=== PATIENT | female | born 1990 | race Hispanic/Latino ===

== ENCOUNTER 2018-12-10 07:17 | Day surgery (SDC) | payer MEDICAID ==
[2018-12-10] MEDS ORDERED: VERSED IV PRN (07:42)
[2018-12-10] MEDS ORDERED: SUBLIMAZE IV PRN (07:55)
--- NOTE | 2018-12-10 07:55 | Anesthesia Consultation ---
Anesthesia Consult and Med Hx Date of service: 12/10/18 - Airway Anesthetic Teeth Evaluation: Good ROM Head & Neck: Adequate Mental/Hyoid Distance: Adequate Mallampati Class: Class I Intubation Access Assessment: Good - Pulmonary Exam CTA: Yes - Cardiac Exam Cardiac Exam: RRR - Pre-Operative Health Status ASA Pre-Surgery Classification: ASA2 Proposed Anesthetic Plan: General - Pulmonary Hx Smoking: Yes (quit 10/2018) Hx Asthma: No Hx Respiratory Symptoms: No COPD: No - Cardiovascular System Hx Hypertension: No Hx Heart Attack/AMI: No Hx Percutaneous Transluminal Coronary Angioplasty (PTCA): No Hx Cardia Arrhythmia: No - Central Nervous System Hx Seizures: No CVA: No - Gastrointestinal Hx Gastroesophageal Reflux Disease: No - Endocrine Hx Renal Disease: No Hx Liver Disease: No Hx Insulin Dependent Diabetes: No Hx Non-Insulin Dependent Diabetes: No Hx Thyroid Disease: No - Other Systems Hx Obesity: No - Additional Comments Anesthesia Medical History Comments: No hx anesthetic complications. Believes she was 12-14wks but was told that the fetus stopped grawing at 10wks. Reports bleeding similar to a menstral cycle in last 2 days.
--- NOTE | 2018-12-10 07:55 | Anesthesia Day of Surgery ---
Anesthesia Day of Surgery - Day of Surgery Patient Examined: Yes Patient H&P Reviewed: Yes Patient is NPO: Yes
[2018-12-10] MEDS ORDERED: LACTATED RINGERS 1,000 ML IV SCH (08:00)
--- NOTE | 2018-12-10 08:09 | Short Stay Summary ---
Short Stay Documentation Date of service: 12/10/18 Narrative H&P: Patient is a 28 year old L1 who presents for D&E secondary to missed ab at 16 weeks with gestational sac measuring 10 weeks. - History H&P: obtained from office Past Medical History: No medical history Past Surgical History: No surgical history - Allergies and Medications Current Medications: Allergies No Known Allergies Allergy (Unverified 12/09/18 15:49) Home Medications Medication Instructions Recorded Confirmed Last Taken Type No Known Home Medications [No 12/09/18 12/09/18 Unknown History Reported Home Medications] Active Medications Fentanyl (Sublimaze) 50 mcg IV Q5MIN PRN PRN Reason: Pain , Severe (7-10) Lactated Ringer's (Lactated Ringers) 1,000 mls @ 75 mls/hr IV DIRECT DEDRA Midazolam HCl (Versed) 2 mg IV PREOP PRN PRN Reason: Anesthesia Stop: 12/10/18 23:59 - Physical exam General appearance: no acute distress Integumentary: no rash, no growths, no abnormal pigmentation HEENT: Atraumatic Lungs: Clear to auscultation Breasts: deferred Heart: Regular rate, Normal S1, Normal S2 Gastrointestinal: normal, normoactive bowel sounds Female Genitourinary: deferred Rectal Exam: deferred Extremities: No edema - Brief post op/procedure progress note Date of procedure: 12/10/18 Pre-op diagnosis: Missed Post-op diagnosis: same Procedure: D&E Anesthesia: GETA Findings: Uterus at 10 week size. Surgeon: CHASIDY URRUTIA Estimated blood loss: other (300cc) Pathology: list (products of conception) Specimen disposition: to lab Condition: stable - Hospital course Hospital course: unremarkable - Disposition Condition at discharge: Good Disposition: [id number] TO HOME OR SELFCARE Short Stay Discharge Plan Activity: advance as tolerated, other (nothing in the vagina) Weight Bearing Status: Weight Bear as Tolerated Diet: regular Follow up with: CHASIDY URRUTIA MD [Staff Physician] - 14 Days Prescriptions: Ibuprofen [Motrin] 800 mg PO Q8HR PRN #30 tablet PRN Reason: Pain, Mild (1-3) HYDROcodone/ACETAMINOPHEN [[place] 5-325 Tablet] 2 each PO Q6H #20 tablet
[2018-12-10] MEDS ORDERED: DIPRIVAN 10 MG/ML IV ONE (09:38)
[2018-12-10] MEDS ORDERED: XYLOCAINE MPF 2% ONE (09:38)
[2018-12-10] MEDS ORDERED: SUBLIMAZE ONE (09:38)
[2018-12-10] MEDS ORDERED: METHERGINE IM ONE (09:42)
[2018-12-10] MEDS ORDERED: SILVER NITRATE TP ONE (09:42)
[2018-12-10] MEDS ORDERED: ANCEF/STERILE WATER 2 GM/20 ML IV NR (10:00)
[2018-12-10] MEDS ORDERED: NACL 0.9% IR ONE (10:16)
[2018-12-10] MEDS ORDERED: NORCO 5/325 PO PRN (12:00)
[2018-12-10 16:56] VITALS: BP 126/81
--- NOTE | 2018-12-11 09:09 | Post Anesthesia Evaluation ---
- Post Anesthesia Evaluation Patient Participated: Yes Airway Patent: Yes Stable Respiratory Function: Yes Nausea/Vomiting: No Temp > 96.8F: Yes Pain Manageable: Yes Adequeate Hydration: Yes Anesthesia Complications: No Block Receding Appropriately: Not Applicable Patient on Ventilator: No
== END 2018-12-10 15:50 | disposition home or self-care (01) ==
LOC: OR 07:17
PROVIDERS: ATTEND Obstetrics & Gynecology
DX: O03.4 Incomplete spontaneous abortion without complication (principal); Z98.890 Other specified postprocedural states; Z90.721 Acquired absence of ovaries, unilateral
CPT/HCPCS: 59812; 86850; 86900; 86901; 88305; J2210; J2250; J2704; J3010; J7120